=== PATIENT | female | born 1950 | race Asian ===

== ENCOUNTER 2023-11-20 10:40 | Emergency (ER) | payer OTHER ==
[~2023-11-20] VITALS: Ht 157.5 cm; Wt 60.4 kg
[~2023-11-20 10:40] MED LIST: RANI150T7 PO
[2023-11-20 10:42] VITALS: TEMP 98.2
[2023-11-20] MEDS ORDERED: FAMO20TA8 PO (10:46)
[2023-11-20] MEDS: ACETAMINOPHEN 500 MG TABLET PO ONE (13:24)
[2023-11-20 14:43] VITALS: BP 148/92; PULSE 72; RESP 18
[2023-11-20] MEDS ORDERED: IBUP-1554 PO (15:16)
[2023-11-20] MEDS ORDERED: ACET-66 PO (15:16)
== END 2023-11-20 15:25 | disposition home or self-care (01) ==
LOC: EMS 10:40
DX: S20.211A Contusion of right front wall of thorax, initial encounter (principal); Z91.013 Allergy to seafood; V49.88XA Car occupant (driver) (passenger) injured in other specified transport accidents, initial encounter; Y93.89 Activity, other specified; Y92.89 Other specified places as the place of occurrence of the external cause; Y99.8 Other external cause status
CPT/HCPCS: 71101; 99283

== ENCOUNTER 2023-12-10 09:33 | Emergency (ER) | payer OTHER ==
[~2023-12-10] VITALS: Ht 157.5 cm; Wt 56.8 kg
[~2023-12-10 09:33] MED LIST changes: +ACET-66 PO; +FAMO20TA8 PO; +IBUP-1554 PO; -RANI150T7 PO
[2023-12-10 09:36] VITALS: TEMP 98.2
[2023-12-10] MEDS: ACETAMINOPHEN 500 MG TABLET PO ONE (10:25)
[2023-12-10] MEDS ORDERED: ACET-2247 PO (11:13)
[2023-12-10] MEDS ORDERED: LIDO700A15 TP (11:13)
[2023-12-10 12:00] VITALS: BP 145/80; PULSE 65; RESP 14
== END 2023-12-10 12:24 | disposition home or self-care (01) ==
LOC: EMS 09:33
DX: S13.4XXA Sprain of ligaments of cervical spine, initial encounter (principal); Z91.018 Allergy to other foods; V89.2XXA Person injured in unspecified motor-vehicle accident, traffic, initial encounter; Y93.89 Activity, other specified; Y92.89 Other specified places as the place of occurrence of the external cause; Y99.8 Other external cause status
CPT/HCPCS: 70450; 72125; 99284